=== PATIENT | female | born 2000 | race American Indian/Alaskan Native ===

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

== ENCOUNTER 2019-05-10 12:55 | Emergency (ER) | payer MEDICAID, OTHER | END 2019-05-10 13:54 | disposition left against medical advice (07) | LOC: DL.ED 12:55 | DX: Z53.21 Procedure and treatment not carried out due to patient leaving prior to being seen by health care provider (principal) | CPT/HCPCS: 99282 ==

== ENCOUNTER 2019-12-11 05:47 | Emergency (ER) | payer MEDICAID ==
[2019-12-11 06:04] VITALS: BP 128/61; PULSE 81
--- NOTE | 2019-12-11 06:17 | EDM.PDOC ---
<Ad Bass M - Last Filed: 12/11/19 06:45> ED HPI GENERAL MEDICAL PROBLEM - General Chief Complaint: LEAD DATA ARCHITECT Problem Stated Complaint: 20 WEEKS AND STOMACH PAIN Time Seen by Provider: 12/11/19 06:05 Source of Information: Reports: Patient History Limitations: Reports: No Limitations - History of Present Illness INITIAL COMMENTS - FREE TEXT/NARRATIVE: This 19 yo female patient reports to the ED with bilateral abdominal pain, nausea, vomiting (x1) and a sore throat that started this morning. The patient reports she is currently 20 weeks . The patient reports she has been having intermittent morning sickness, but has never felt this bad. The patient reports she had an ultrasound about 1 month ago and everything was fine. The patient reports she has had some nasal congestion over the past several days. The patient reports she was sent home from work this morning due to her current symptoms. The patient reports she has an appointment in the clinic tomorrow. The patient denies any fever at this time. The patient's partner has also had some head congestion, but no nausea or vomiting. Onset: Today Duration: Intermittent Location: Reports: Generalized Quality: Reports: Other Severity: Moderate Improves with: Reports: None Worsens with: Reports: None Context: Reports: Other Associated Symptoms: Reports: Cough, Nausea/Vomiting, Other (sore throat and head congestion) Abdomen Pain Score (Numeric/FACES): 7 - Related Data Allergies Allergy/AdvReac Type Severity Reaction Status Date / Time No Known Allergies Allergy Verified 12/11/19 06:04 Home Meds: Home Meds hydrOXYzine pamoate [Hydroxyzine Pamoate] 25 mg PO DAILY 01/27/17 [History] Past Medical History - Past Health History Medical/Surgical History: Denies Medical/Surgical History HEENT History: Reports: None Cardiovascular History: Reports: None Respiratory History: Reports: None Gastrointestinal History: Reports: Cholelithiasis Genitourinary History: Reports: None 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 Musculoskeletal History: Reports: None Neurological History: Reports: None Psychiatric History: Reports: Depression, Suicide Attempt, Suicidal Ideation, Other (See Below) Other Psychiatric History: pt trying to hit herself last night and started cutting Endocrine/Metabolic History: Reports: None Hematologic History: Reports: Anemia Immunologic History: Reports: None Oncologic (Cancer) History: Reports: None Dermatologic History: Reports: Other (See Below) Other Dermatologic History: left outer arm is a cut teena - Infectious Disease History Infectious Disease History: Reports: Chicken Pox - Past Surgical History Head Surgeries/Procedures: Reports: None GI Surgical History: Reports: Cholecystectomy Social & Family History - Family History Family Medical History: Noncontributory - Tobacco Use Smoking Status *Q: Never Smoker Second Hand Smoke Exposure: No - Caffeine Use Caffeine Use: Reports: Coffee, Soda - Recreational Drug Use Recreational Drug Use: No ED ROS GENERAL - Review of Systems Review Of Systems: Comprehensive ROS is negative, except as noted in HPI. ED EXAM, GI/ABD - Physical Exam Exam: See Below Exam Limited By: No Limitations General Appearance: Alert, WD/WN, Mild Distress Eyes: Bilateral: Normal Appearance, EOMI Ears: Normal External Exam, Normal Canal, Hearing Grossly Normal, Normal TMs Nose: Normal Inspection, Normal Mucosa, No Blood Throat/Mouth: Normal Inspection, Normal Lips, Normal Teeth, Normal Gums, Normal Oropharynx, Normal Voice, No Airway Compromise Head: Atraumatic, Normocephalic Neck: Normal Inspection, Supple, Non-Tender, Full Range of Motion Respiratory/Chest: No Respiratory Distress, Lungs Clear, Normal Breath Sounds, No Accessory Muscle Use, Chest Non-Tender Cardiovascular: Normal Peripheral Pulses, Regular Rate, Rhythm, No Edema, No Gallop, No JVD, No Murmur, No Rub GI/Abdominal Exam: Normal Bowel Sounds, Soft, No Organomegaly, No Distention, No Abnormal Bruit, No Mass, Pelvis Stable, Tender (bilateral abdominal wall tenderness) (Female) Exam: Deferred Rectal (Female) Exam: Deferred Back Exam: Normal Inspection, Full Range of Motion, NT Extremities: Normal Inspection, Normal Range of Motion, Non-Tender, Normal Capillary Refill, No Pedal Edema Neurological: Alert, Oriented, CN II-XII Intact, Normal Cognition, Normal Gait, Normal Reflexes, No Motor/Sensory Deficits Psychiatric: Normal Affect, Normal Mood Skin Exam: Warm, Dry, Intact, Normal Color, No Rash Lymphatic: No Adenopathy Course - Vital Signs Last Recorded V/S: Last Vital Signs Temp 97.7 F 12/11/19 05:57 Pulse 81 12/11/19 05:57 Resp 18 12/11/19 05:57 BP 128/61 12/11/19 05:57 Pulse Ox 100 12/11/19 05:57 - Orders/Labs/Meds Orders: Active Orders 24 hr Category Date Time Status CULTURE STREP A CONFIRMATION [] Stat Lab 12/11/19 06:14 Results CULTURE URINE [] Stat Lab 12/11/19 07:00 Received STREP SCRN A RAPID W CULT CONF [] Stat Lab 12/11/19 06:14 Results Isolation [COMM] Routine Oth 12/11/19 06:10 Active Labs: Laboratory Tests 12/11/19 12/11/19 12/11/19 Range/Units 06:16 06:16 07:00 WBC 9.5 (5.0-10.0) 10^3/uL RBC 4.16 L (4.2-5.4) 10^6/uL Hgb 10.2 L (12.0-16.0) g/dL Hct 31.6 L (37.0-47.0) % MCV 76.0 L D (80-100) fL MCH 24.5 L (27.0-34.0) pg MCHC 32.3 L (33.0-35.0) g/dL Plt Count 255 D (150-450) 10^3/uL Neut % (Auto) 72.2 (42.2-75.2) % Lymph % (Auto) 16.4 L (20.5-50.1) % Tate % (Auto) 10.5 H (2-8) % Eos % (Auto) 0.7 L (1.0-3.0) % Baso % (Auto) 0.2 (0.0-1.0) % Sodium 138 (136-145) mmol/L Potassium 3.3 L (3.5-5.1) mmol/L Chloride 104 (98-107) mmol/L Carbon Dioxide 26 (21-32) mmol/L Anion Gap 11.3 (7-13) mEq/L BUN 4 L (7-18) mg/dL Creatinine 0.47 L (0.55-1.02) mg/dL Est Cr Clr Drug Dosing 149.75 mL/min Estimated GFR (MDRD) > 60 BUN/Creatinine Ratio 8.5 (No establ ref range) Glucose 85 (74-99) mg/dL Calcium 8.1 L (8.5-10.1) mg/dL Total Bilirubin 0.3 (0.2-1.0) mg/dL AST 18 (15-37) U/L ALT 20 (14-59) U/L Alkaline Phosphatase 62 (46-116) U/L Total Protein 7.3 (6.4-8.2) g/dL Albumin 3.0 L (3.4-5.0) g/dL Globulin 4.3 Albumin/Globulin Ratio 0.70 Urine Color Yellow (YELLOW) Urine Appearance Slightly cloudy (CLEAR) Urine pH 7.0 (5.0-9.0) Ur Specific [place] 1.020 (1.005-1.030) Urine Protein Negative (NEGATIVE) Urine Glucose (UA) Negative (NEGATIVE) Urine Ketones 40 H (NEGATIVE) Urine Occult Blood Negative (NEGATIVE) Urine Nitrite Negative (NEGATIVE) Urine Bilirubin Negative (NEGATIVE) Urine Urobilinogen 0.2 (0.2-1.0) mg/dL Ur Leukocyte Esterase Trace H (NEGATIVE) Urine RBC Not seen /HPF Urine WBC 0-5 (0-5/HPF) /HPF Ur Epithelial Cells Few (NOT SEEN) /HPF Amorphous Sediment Few (NOT SEEN) /HPF Urine Bacteria Few (0-FEW/HPF) /HPF Urine Mucus Rare (NOT SEEN) /LPF Departure - Departure Disposition: Home, Self-Care 01 Clinical Impression: Second trimester Nausea & vomiting Qualifiers: Vomiting type: bilious vomiting Qualified Code(s): R11.14 - Bilious vomiting - Discharge Information Instructions: Nausea and Vomiting, Adult, [facility], Second Trimester of Forms: ED Department Discharge Additional Instructions: rest encourage fluids, small amounts more frequently advance diet as tolerated Follow up as needed Sepsis Event Note - Evaluation Sepsis Screening Result: No Definite Risk - Focused Exam Vital Signs: Vital Signs Temp Pulse Resp BP Pulse Ox 12/11/19 05:57 97.7 F 81 18 128/61 100 Date Exam was Performed: 12/11/19 Time Exam was Performed: 06:45 - My Orders Last 24 Hours: My Active Orders 12/11/19 07:00 CULTURE URINE [RM] Stat - Assessment/Plan Last 24 Hours: My Active Orders 12/11/19 07:00 CULTURE URINE [RM] Stat <Emily Cota - Last Filed: 12/11/19 07:34> Departure - Departure Time of Disposition: 07:29 Condition: Good - Discharge Information *PRESCRIPTION DRUG MONITORING PROGRAM REVIEWED*: No *COPY OF PRESCRIPTION DRUG MONITORING REPORT IN PATIENT TIGIST: No Sepsis Event Note - Focused Exam Date Exam was Performed: 12/11/19 Time Exam was Performed: 07:28
[2019-12-11 06:43] LABS: ANION GAP 11.3 mEq/L (7-13); CHLORIDE,CL 104 mmol/L (98-107); SODIUM,NA 138 mmol/L (136-145)
== END 2019-12-11 07:35 | disposition home or self-care (01) ==
LOC: DL.ED 05:47
DX: O21.9 Vomiting of pregnancy, unspecified (principal); Z90.49 Acquired absence of other specified parts of digestive tract; Z3A.20 20 weeks gestation of pregnancy
CPT/HCPCS: 36415; 80053; 81001; 85025; 87081; 87086; 87430; 87804; 99284

== ENCOUNTER 2020-03-15 13:12 | Observation (INO) | payer MEDICAID ==
[2020-03-15] MEDS ORDERED: Acetaminophen 325 MG Tab PO PRN (15:05)
[2020-03-15] MEDS ORDERED: Lactated Ringers 1,000 ML IV ONE (15:05)
[2020-03-15 15:47] LABS: ANION GAP 14.9 mEq/L (7-13); CHLORIDE,CL 106 mmol/L (98-107); SODIUM,NA 141 mmol/L (136-145)
--- NOTE | 2020-03-15 16:37 | US ---
EXAMINATION: BPP wo NST SEX: Female AGE: 19 years CLINICAL HISTORY: 25-year-old gravid female with gestational diabetes. Interpretation: Abnormal biophysical profile i.e. score 4 of 8 reflecting summation score 0 each for breathing movements and motion; score 2 each for tone and amniotic fluid volume. Clinical nonstress test results are not immediately available. Single live ( heart rate 144 bpm) intrauterine gestation, cephalic presentation. Note: Low volume (MAHIN 8 cm) amniotic fluid. Dilated proximal ureter right kidney (8 mm). CONCLUSION: Abnormal biophysical profile score 4 of a possible 8.
[2020-03-15] MEDS: Lactated Ringers 1,000 ML IV SCH ×2 (16:44→23:18)
[2020-03-15] MEDS: metFORMIN 500 MG Tab PO SCH (18:08)
--- NOTE | 2020-03-15 19:45 | HP ---
PATIENT IDENTIFICATION: Betzy Whitt is a 19-year-old G1, P0, intrauterine at 33-3/7 weeks by 7-week ultrasound, who presents with a biophysical profile score of 6/10 with an MAHIN borderline being 6.96 with gestational diabetes mellitus, questionable control. HISTORY OF PRESENT ILLNESS: The patient was seen last week. Started on medicines with metformin as her blood sugars were not under control, just minimally out of control postprandial with fasting ones being under control and concerns with possibility of having hypoglycemia. She was started on metformin. She was starting twice weekly testing this week and underwent a biophysical profile scoring 6/10 total with an MAHIN of 6.96. Because of the concerns with status with equivocal biophysical profile with MAHIN, especially with MAHIN being borderline, shared decision was made to proceed with an admission with IV fluid resuscitation, continuous monitoring, and following closely due to the increased risk of concerns with baby. I did discuss with the patient. She understands and agrees. With this in context, the patient has had gonorrhea and chlamydia early in the that were treated and tested negative thereafter, rubella nonimmune status, gestational diabetes mellitus, now on metformin. Blood sugar today approximately 2 hours after eating a cheeseburger was 144. Records called for, reviewed as below, and supplemented by patient history. [facility]: ABO blood type A positive. Negative antibody. Rubella nonimmune. Syphilis antibody is nonreactive. Negative hepatitis B surface antigen. Negative hep C, HIV, GC, and chlamydia recently with positive test earlier in the . Hemoglobin last one noted was 11.2 on 01/27/2020. One-hour GTT was 148 on 02/06/2020 and on 02/11/2020 had 1 hour and 2 hours post 3-hour GTT at 223 and 204 qualifying for gestational diabetes mellitus diagnosis. ALLERGIES: None. MEDICATIONS: Metformin 500 mg b.i.d., iron sulfate 325, and vitamins daily. PAST MEDICAL/PAST SURGICAL HISTORY: Remarkable for laparoscopic cholecystectomy in the past, anxiety and depression, as well as headaches in the past. SOCIAL HISTORY: Former smoker, quit on 12/13/2017. No alcohol or drug use currently. Lives in [place] with boyfriend, who is father of baby, Talib Stephens, and his brother. Cat in the household. Worked at [employer] in the past. FAMILY HISTORY: Heart disease in father. Negative family history of anesthesia, bleeding problems, or defects. REVIEW OF SYSTEMS: Otherwise reviewed fully and felt to be noncontributory. OBJECTIVE: Vital Signs: Blood pressure 119/66, heart rate 64, the patient feels afebrile. Appearance: Female appears stated age, acting appropriate, nontoxic appearance. Head: Atraumatic. EOMs intact. PERRLA. No scleral icterus. No obvious otorhinorrhea. Mucous membranes moist. Neck: No obvious tenderness. Lungs: Clear to auscultation bilaterally. No increased work of breathing. Heart: S1, S2. Regular rate and rhythm. Abdomen: Gravid. Aneudy's indeterminate. Nontender, nondistended. Bowel sounds positive. No organomegaly, pulsatile masses, or obvious hernias. No rebound, rigidity, or guarding. Some movement is documented and partially felt with exam today. Extremities: No peripheral edema. Deep tendon reflexes 2 to 3 out of 4 bilaterally and symmetric in lower extremities. Psychiatric: Mood and affect congruent. Judgment and insight intact. Skin: Without any cyanosis, clubbing, or jaundice. NST is found to be reactive and reassuring with heart tones in the 130s to 135 range baseline and tocometer revealed occasional contraction none felt by the patient. movement documented. Biophysical profile was done without the NST, scored a 4/8 with an MAHIN of 6.96 with points off for nonbreathing and no movement. ASSESSMENT: 1. Intrauterine at 33-3/7 weeks by 7-week ultrasound. 2. Nonreassuring status versus equivocal status with a 6/10 biophysical profile score noted. 3. Borderline oligohydramnios with MAHIN of 6.96. 4. Gestational diabetes mellitus, questionable controlled on metformin with 2- hour postprandial today being 144. 5. G1, P0. PLAN: Discussed with the patient. We will admit for observation, IV fluid resuscitation, continuous monitoring. Watch for any further contractions or her feeling them as well as evaluate blood sugars due to gestational diabetes mellitus and repeat a biophysical profile with MAHIN in the morning to further evaluate. The patient understands and agrees to above treatment. We will continue to follow clinically and closely. [facility] /[id number] [facility]PITALCharley
--- NOTE | 2020-03-15 20:45 | OBOUT ---
DATE: 03/15/2020 TIME: 1433 to 1453. REASON FOR NST: 1. Intrauterine at 33-3/7 weeks by 7-week ultrasound. 2. Nonreassuring status versus equivocal status with a biophysical profile 6/10 with an MAHIN of 6.96. 3. Borderline oligohydramnios with MAHIN as above. 4. Gestational diabetes mellitus, questionable controlled, currently on metformin. Two-hour postprandial today was 144. 5. G1, P0. NST INTERPRETATION: During this time period, heart tone baseline is approximately 135 to 140 and at least two 15 x 15 beats per minute accelerations, making this strip reactive and also reassuring. Tocometer reveals potential of 2 contractions during this time period, not felt by the patient. Blood pressure 119/66, heart rate 64, the patient feels afebrile. ASSESSMENT: 1. Nonstress test, reactive and reassuring. 2. Tocometer with 2 contractions, none felt by the patient. PLAN: Due to the biophysical profile scoring now a 6/10 with the NST as above and a borderline oligohydramnios with an MAHIN of 6.96, did discuss with the patient concerns with status and recommendation to proceed with hospitalization, continuous monitoring, IV fluid resuscitation, diabetic diet, following blood sugars closely, and repeating a BPP with MAHIN in the morning as well as a nonstress test. If these are improving, I suspect a transient nature, but will need to follow clinically and closely. This was discussed with the patient in detail. She understands and agrees with the above treatment and plan. [facility] /[id number]
[2020-03-16] MEDS: Lactated Ringers 1,000 ML IV SCH (06:12)
[2020-03-16] MEDS ORDERED: Folic Acid 1 MG Tab PO SCH (09:00)
[2020-03-16] MEDS: metFORMIN 500 MG Tab PO SCH (09:20)
[2020-03-16 10:20] VITALS: BP 119/55; PULSE 59
--- NOTE | 2020-03-16 13:55 | US ---
EXAMINATION: BPP wo NST SEX: Female AGE: 19 years CLINICAL HISTORY: 25-year-old high risk gravid female with gestational diabetes and BPP 03/03 (03/15/2020). Follow-up. INTERPRETATION: Single live ( heart rate 135 bpm) intrauterine gestation CEPHALIC presentation. Maximum biophysical profile score 8 OF 8 today reflecting summation score 2 each for the breathing movements, motion, tone and amniotic fluid volume. Clinical nonstress test not immediately available. MAHIN 14 cm.
--- NOTE | 2020-03-16 20:00 | OBOUT ---
DATE: 03/16/2020 REASON FOR NST: 1. Intrauterine at now 33-4/7 weeks by 7-week ultrasound. 2. Nonreassuring status versus equivocal, biophysical profile score to 6/10 yesterday. 3. Borderline oligohydramnios with amniotic fluid index less than 8, tech reported at 6.96 yesterday. 4. Gestational diabetes mellitus, questionable control. 5. G1, P0. 6. Anemia of earlier and resolved with iron sulfate. NST INTERPRETATION: During this time period, heart tone baseline is approximately 130 and least two 15 x 15 beats per minute accelerations, making this strip reactive and also noted to be reassuring. Tocometer reveals no evidence of contractions. ASSESSMENT: 1. Nonstress test, reactive and reassuring. 2. Tocometer without contractions. PLAN: Please see discharge summary for further details. As part of this workup, a repeat biophysical profile with MAHIN was done and tech report notes scores of 10/10 with the above as well as an MAHIN in the 13 range, and the patient was treated with IV fluids and monitoring and followed closely. Of note, her fasting blood sugar was in the 100 to 110 range this morning, which is out of control, but she has been taking her metformin, and we will continue to do so and watch serially her blood glucose over a period of time. Please see discharge paperwork for further details. [facility] /[id number]
--- NOTE | 2020-03-16 20:36 | DISCH ---
ADMIT DIAGNOSES: 1. Intrauterine at 33-3/7 weeks by 7-week ultrasound. 2. Nonreassuring status versus equivocal status with a biophysical profile of 6/10. 3. Borderline oligohydramnios with amniotic fluid index reported at 6.96 and less than or equal to 8 per final report. 4. Gestational diabetes mellitus, questionable control. Currently, on metformin. 5. G1, P0. 6. Anemia of earlier in the , resolved with iron supplementation. DISCHARGE DIAGNOSES: 1. Intrauterine at 33-4/7 weeks by 7-week ultrasound. 2. Nonreassuring status versus equivocal status, resolved with biophysical profile of 10/10 on date of discharge with an amniotic fluid index in the 13 range per tech report. 3. Borderline oligohydramnios with amniotic fluid index reported at 6.96 and less than or equal to 8 per final report. 4. Gestational diabetes mellitus, questionable control. Currently, on metformin. 5. G1, P0. 6. Anemia of earlier in the , resolved with iron supplementation. PROCEDURE PERFORMED: Nonstress test 03/15/2020 and 03/16/[address] Lai. HISTORY OF PRESENT ILLNESS: Please see H and P. SUMMARY OF HOSPITAL COURSE: The patient admitted on the above date with above diagnoses due to equivocal BPP with scoring 6/10 with borderline oligohydramnios. She was given IV fluid resuscitation. Followed sugars closely with a diabetic diet. INITIAL LABORATORY DATA: White cell count 10.1, hemoglobin 13.1, platelets 175. Sugar of 144. BMP remarkable for anion gap minimally elevated at 14.9 and a sugar of 106 on this. Her blood sugars were followed through her hospital stay. She had a 97 two-hour postprandial and then a fasting on morning of discharge being 105 after having a midnight snack with [employer]. Her urinalysis did reveal small leukocyte esterase, 5-10 white cells per high-power field as well. DISCHARGE EVALUATION: Vital Signs: Temperature 94, heart rate 66, blood pressure 119/68, respiratory rate 18. The patient denies feeling contractions. No increased work of breathing was noted. Strong peripheral pulses, symmetric and bilaterally in the upper extremities. Abdomen: Soft, nontender, nondistended. Bowel sounds positive. Gravid. Aneudy's indeterminate. Extremities: No peripheral edema. Deep tendon reflexes 2 to 3 out of 4 bilaterally and symmetric in all extremities. NST is found to be reactive and reassuring. heart tone baseline around the 130 to 135 range, and ultrasound revealed a biophysical profile scoring of 10/10 with an MAHIN in the 13 range per tech report. CONDITION ON DISCHARGE COMPARED TO CONDITION ON ADMISSION: Improved. DISCHARGE INSTRUCTIONS: Diet: Recommend continuing her diabetic diet. Activity is as tolerated. Follow up on 03/18/2020, and she has an appointment in the clinic followed by an NST that day. DISCHARGE MEDICATIONS: Continue iron sulfate, vitamins, and metformin 500 mg b.i.d. Did discuss with the patient and her male partner in the interim reasons to return or go to the emergency room and they understand and agree. [facility] /[id number]
== END 2020-03-16 09:30 | disposition home or self-care (01) ==
LOC: DL.US 13:12 → DL.MS 15:07
PROVIDERS: ADMIT Hospitalist; ATTEND Family Medicine
DX: O28.8 Other abnormal findings on antenatal screening of mother (principal); O24.419 Gestational diabetes mellitus in pregnancy, unspecified control; O99.013 Anemia complicating pregnancy, third trimester; D64.9 Anemia, unspecified; Z87.891 Personal history of nicotine dependence; Z3A.33 33 weeks gestation of pregnancy
CPT/HCPCS: 36415; 59025; 76819; 80048; 81001; 82962; 85025; 87086; 96360; 96361; A9270; G0378; J7120

== ENCOUNTER 2020-04-07 22:38 | Inpatient (IN) | payer MEDICAID ==
[2020-04-08] MEDS ORDERED: Lidocaine 1% 30 ML SDV INJECT PRN (00:22)
[2020-04-08] MEDS ORDERED: Tranexamic Acid 1,000 MG in Sodium Chloride 0.9% 100 ML IV PRN (00:22)
[2020-04-08] MEDS ORDERED: Lactated Ringers 1,000 ML IV ONE (00:22)
[2020-04-08] MEDS ORDERED: Sodium Chloride 0.9% 10 ML Syringe FLUSH PRN (00:22)
[2020-04-08] MEDS ORDERED: Methylergonovine 0.2 MG/1 ML Amp IM PRN (00:22)
[2020-04-08] MEDS ORDERED: Carboprost Tromethamine 250 MCG/1 ML Amp IM PRN (00:22)
[2020-04-08] MEDS ORDERED: Misoprostol 400 MCG (4 X 100 MCG TAB) RECTAL PRN (00:22)
[2020-04-08] MEDS ORDERED: Acetaminophen 325 MG Tab PO PRN (00:22)
[2020-04-08] MEDS ORDERED: Oxytocin/Normal Saline 30 UNIT/500 ML BAG IV SCH (00:30)
[2020-04-08] MEDS: Lactated Ringers 1,000 ML IV SCH ×6 (02:00→21:03)
[2020-04-08] MEDS: fentaNYL 100 MCG/2 ML SDV IVPUSH PRN ×5 (02:01→06:39)
[2020-04-08] MEDS: Ondansetron 4 MG/2 ML SDV IVPUSH PRN ×3 (02:02→12:44)
--- NOTE | 2020-04-08 02:02 | HP ---
PATIENT IDENTIFICATION: Anaid Whitt is a 19-year-old G1, P0, intrauterine at 36-5/7 weeks on date of admission, currently 36-6/7 weeks, confirmed with 7-week ultrasound, who presents with vaginal leaking and contraction. HISTORY OF PRESENT ILLNESS: The patient states at approximately 9:30 p.m. on date of admission, 04/07/2020, the patient was eating supper and noticed vaginal leaking that was clear in nature enough to run down her legs and soak through her clothing and continued and persisted, so being evaluated here at the hospital. Admitted. Associated with this have been contractions that are getting worse. Cyclone in the lower abdomen, coming every couple of minutes, and severe enough that she is breathing through them. To put this in context, she is GBS negative. Gestational diabetic, controlled on metformin 500 mg b.i.d. In last 24 to 48 hours, sugars have been within control and has rubella nonimmune status as well as history of gonorrhea and chlamydia in 08/2019 that was treated and negative with retesting in 09/2019 as well as a history of anemia of on iron with hemoglobin today 12.9. Records called for, reviewed as below, and supplemented by patient history. OBSTETRICAL HISTORY: Primid. ANTEPARTUM LABORATORIES: ABO blood type, is A positive, negative antibody. Rubella nonimmune. Syphilis antibody is nonreactive. Negative hepatitis B surface antigen. Hep C, HIV, with positive GC and chlamydia in 06/2019 and negative on 10/20/2019 after retesting after treatment with wet prep being negative with a 1-hour GTT at 1:48 and a 3-hour GTT positive for gestational diabetes mellitus. She is GBS negative. That was obtained on 04/05/2020. Also, she had COVID testing upon admission and that was negative as well. ALLERGIES: None. MEDICATIONS: 1. vitamins daily. 2. Iron sulfate 325 b.i.d. 3. Metformin 500 mg b.i.d. 4. Colace 100 mg p.r.n. PAST MEDICAL/PAST SURGICAL HISTORY: Remarkable for a laparoscopic cholecystectomy in the past, anxiety, depression, and headaches in the past. FAMILY HISTORY: Heart disease in father. Negative family history of anesthesia problems, bleeding problems, or defects. SOCIAL HISTORY: The patient lives in [place] with boyfriend, father of the baby, Talib Stephens, and his brother. There is a cat in the household. She had been working at [employer] in the past. She is a former smoker. No alcohol use. No drug use currently. REVIEW OF SYSTEMS: Otherwise, reviewed and felt to be noncontributory. OBJECTIVE: Vital Signs: Initial blood pressure 136/77, heart rate 71, temperature 98.6. Appearance: Female appears her stated age, acting appropriate for age. Nontoxic appearance. Breathing through contractions, but answering questions appropriately in between. HEENT: Head: Atraumatic. EOMs intact. PERRLA. No scleral icterus. No sore throat. Mucous membranes are moist. Neck: No obvious tenderness. Lungs: Clear to auscultation bilaterally. No increased work of breathing. Heart: S1, S2. Regular rate and rhythm. Abdomen: Gravid. Aneudy's indeterminate. Nontender, nondistended. Bowel sounds positive. No organomegaly, pulsatile masses, or hernias. No rebound, rigidity, or guarding. Monitors applied. : Normal external female genitalia. Normal position and presentation of urethra. Vaginal exam reveals her to be 5 to 6 cm, 80% to 90% effaced, 0 station, vertex suspected, and clear fluid emanating from the vaginal orifice. Extremities: No peripheral edema. Deep tendon reflexes 2 to 3 out of 4 bilaterally and symmetric in lower extremities. Psychiatric: Mood and affect congruent. Judgment and insight intact. Skin: No cyanosis, clubbing, or jaundice. NST is found to be reactive and reassuring. Tocometer reveals contractions every 2 to 3 minutes. White cell count 12.2, hemoglobin 12.9, platelets 184. Bwjba-ik-ljkw glucose was 103. AmniSure was positive and COVID-19 NAAT test was negative. ASSESSMENT: 1. Intrauterine at 36-5/7 weeks and now 36-6/7 weeks confirmed with 7-week ultrasound. 2. Spontaneous rupture of membranes at 2130 hours on date of admission, 04/07/2020. 3. Group B Streptococcus negative. 4. Gestational diabetes mellitus, controlled on metformin 500 mg b.i.d. 5. Rubella nonimmune. 6. Positive gonorrhea and chlamydia in 08/2019, treated and negative in 09/2019. 7. History of anemia of , resolved. 8. G1, P0. PLAN: Discussed with the patient with a rapid cervical dilation, we will be admitting her and follow clinically and closely. Of note, she was noted to be 2 to 3 cm upon initial evaluation, unchanged within hours to 5 to 6 cm. When she requests something for pain, fentanyl has been ordered. She is deferring intrathecal at this point in time and wishes to sit in the tub and nurse was getting her into the tub per current time of dictation. In terms of diabetes mellitus, blood sugars are under control. In terms of her being at 36-6/7 weeks, we will continue to follow clinically and closely at this point in time, and due to her rapid cervical dilation, not felt to be a transfer candidate as well. [facility] /[id number]
--- NOTE | 2020-04-08 02:35 | OBOUT ---
DATE: 04/07/2020 TIME: 2250 to 231. REASON FOR NST: 1. Intrauterine at 36-5/7 weeks confirmed with 7-week ultrasound. 2. Spontaneous rupture of membranes approximately at 2130, confirmed with AmniSure. 3. Group B Streptococcus negative. 4. Gestational diabetes mellitus, controlled on metformin 500 mg b.i.d. 5. Rubella nonimmune. 6. Positive gonorrhea and chlamydia in 08/2019, treated and negative thereafter in 2019. 7. Anemia of history with CBC pending currently. 8. G1, P0. NST INTERPRETATION: During this time period, heart tone baseline is approximately 140 and at least two 15 x 15 beats per minute accelerations making this strip reactive and reassuring. Tocometer reveals potential of 6 to 8 contractions during this time period, felt by patient. Blood pressure 136/77, heart rate 71, temperature 98.6. ASSESSMENT: 1. Nonstress test, reactive and reassuring. 2. Tocometer reveals contractions. PLAN: Evaluation shortly thereafter revealed a sugar of 103. AmniSure was done. Vaginal exam revealed around 2 cm soft and anterior. Please see admit history and physical for further details. [facility] /[id number]
[2020-04-08] MEDS ORDERED: hydrOXYzine HCl 25 MG Tab PO STA (05:06)
[2020-04-08] MEDS ORDERED: fentaNYL 100 MCG/2 ML SDV ONE (07:41)
[2020-04-08] MEDS ORDERED: EPINEPHrine 1 MG/1 ML Amp ONE ×2 (07:42→12:40)
--- NOTE | 2020-04-08 10:45 | PN ---
DATE: 04/08/2020 SUBJECTIVE: The patient is breathing through her contractions. Using Nitrox. She has now received 5 doses of fentanyl at this point in time, and using Nitrox. OBJECTIVE: heart tones with scalp electrode applied per nurse is reading baseline around the 120s to 130s range and it appears to be reactive, reassuring, with accelerations seen. Tocometer, contractions are difficult to read at times. Vaginal exam reveals her to be 7 to 8 cm, 90% effaced, 0 station, with caput noted. Last blood pressure 139/70. IUPC placed after discussion with the patient. ASSESSMENT: Intrauterine , now at 36-6/7 weeks, confirmed by 7-week ultrasound, with spontaneous rupture of membranes at 2130 hours, GBS negative, gestational diabetes mellitus, Rubella nonimmune patient who is a primip. PLAN: I did discuss with patient with her cervix being unchanged from nurse evaluation earlier, we will need to follow clinically and closely at this point in time. IUPC placed for further evaluation and management. Questions were answered. The patient does not want an intrathecal at this point in time and we will continue to follow closely at this time. [facility] /[id number]
--- NOTE | 2020-04-08 13:52 | PN ---
DATE: 04/08/2020 SUBJECTIVE: The patient is comfortable status post intrathecal. Started some Pitocin augmentation as [place] units were not adequate. OBJECTIVE: Vital Signs: Blood pressure 134/62, heart rate 70. Pitocin being at 6 mU/min. Tocometer reveals contractions every 2 to 3 minutes. Vaginal exam reveals her to be 8 cm with suspected swollen cervix as effacement has changed to be more thick. Some mild caput is noted. Zero station vertex suspected. heart tones with some mild interference with the scalp electrode does reveal tone baseline around the 140s and is felt to be reactive and reassuring. ASSESSMENT AND PLAN: Intrauterine at 36-6/7 weeks, confirmed with 7- week ultrasound. Spontaneous rupture of membranes last night at 2130 hours in a primid for gestational diabetes mellitus that was controlled with metformin and Rubella nonimmune status. As cervix has changed since last evaluation, we will continue to follow clinically and closely at this point in time. However, with effacement becoming thicker, did discuss with the patient following serially and continuing Pitocin augmentation while she is comfortable with her intrathecal and we will follow maternal status closely. [facility] /[id number]
[2020-04-08] MEDS ORDERED: ePHEDrine 50 MG/ML SDV IVPUSH PRN (15:59)
[2020-04-08] MEDS ORDERED: diphenhydrAMINE 50 MG/ML SDV IVPUSH PRN (15:59)
[2020-04-08] MEDS ORDERED: Ondansetron 4 MG/2 ML SDV IVPUSH PRN (15:59)
[2020-04-08] MEDS ORDERED: Naloxone 2 MG/2 ML Syringe IVPUSH PRN (15:59)
[2020-04-08] MEDS ORDERED: ceFAZolin 2 GM in Premix Bag 1 BAG IV ONE (16:00)
[2020-04-08] MEDS ORDERED: Citric Acid/Sodium Citrate Solution 30 ML Cup PO ONE (16:00)
[2020-04-08] MEDS ORDERED: Oxytocin/Normal Saline 60 UNIT/1,000 ML BAG ONE (16:03)
[2020-04-08] MEDS ORDERED: Methylergonovine 0.2 MG/1 ML Amp ONE (16:46)
[2020-04-08] MEDS ORDERED: Oxytocin/0.9 % Sodium Chloride 30 UNIT/500 ML BAG IV SCH (17:11)
[2020-04-08] MEDS ORDERED: Ketorolac 30 MG/ML SDV IVPUSH SCH (18:00)
[2020-04-08] MEDS ORDERED: Ketorolac 30 MG/ML SDV IVPUSH STA (18:14)
[2020-04-08] MEDS: Simethicone 80 MG Tab.Chew PO SCH (23:10)
[2020-04-08] MEDS: Ketorolac 30 MG/ML SDV IVPUSH SCH (23:18)
[2020-04-09] MEDS: Lactated Ringers 1,000 ML IV SCH (01:54)
--- NOTE | 2020-04-09 03:22 | PN ---
DATE: 04/09/2020 Postoperative day #1. SUBJECTIVE: The patient has tolerated some p.o. Has been vomiting. Decreased urine output was noted with darker color. 500 mL bolus was given and this has improved. She states her pain is under control. OBJECTIVE: Vital Signs: Heart rate 67, blood pressure 116/75, respiratory rate 16. Lungs: Clear to auscultation bilaterally. Heart: S1, S2. Regular rate and rhythm Genitourinary: Firm uterus -2 below umbilicus. Aquacel dressing appears dry and intact. Extremities: SAÚL hose and SCDs are on. LABORATORY DATA: Pending is a CBC later in the morning. ASSESSMENT: 1. Postoperative day #1, status post primary low-transverse with 2- layer uterine closure. 2. Uterine atony requiring Methergine IM x1 in the operating room with improvement thereafter. PLAN: CBC later in the morning. We will follow clinically and closely. Most likely, we will plan on discharge on Sunday with planned followup with mother and baby on Sunday in the clinic, and this was discussed with the patient today and Dr. Reyes and Dr. Christina will be covering in my absence over the weekend. [facility] /[id number]
[2020-04-09] MEDS: Ketorolac 30 MG/ML SDV IVPUSH SCH ×2 (07:06→12:02)
[2020-04-09] MEDS: Simethicone 80 MG Tab.Chew PO SCH ×4 (08:30→20:00)
[2020-04-09] MEDS: Prenatal Multivitamin with Calcium/Folic Acid/Iron Tab PO SCH (08:34)
[2020-04-09] MEDS: Docusate Sodium 100 MG Cap PO PRN ×2 (08:34→20:00)
--- NOTE | 2020-04-09 08:48 | PN ---
DATE: 04/09/2020 CBC returned as white cell count 15, hemoglobin 10.8 compared to predelivery hemoglobin 12.9, platelets are 129 compared to predelivery platelets of 184. OBJECTIVE: VITAL SIGNS: Morning temperature 98.4, heart rate 76, blood pressure 112/76, respiratory rate 18. ASSESSMENT: thrombocytopenia. We will recheck a CBC tomorrow. Follow clinically and closely. No evidence of hemolysis, elevated liver enzymes, low platelet count syndrome at this point in time with blood pressures within normal limits. In addition, had been following urine output closely, and from approximately 4 a.m. to 6 a.m., has had over 150 mL out. PLAN: Most likely, we will follow closely at this point in time. Repeat a CBC tomorrow and consider discharge on Sunday with followups on Sunday. [facility] /[id number]
--- NOTE | 2020-04-09 10:45 | PN ---
DATE: 04/08/2020 SUBJECTIVE: The patient has had some emesis, minor discomfort. OBJECTIVE: heart tones in the 120s, baseline range with some interference from the scalp electrode. Reactive and reassuring. Tocometer reveals contractions every 2 to 3 minutes. Pitocin has now been stopped. Vaginal exam per nurse has been unchanged since at least my last evaluation, and prior to that, very similar with no evidence of cervical change to be complete. ASSESSMENT AND PLAN: Intrauterine , 36-6/7 weeks, confirmed with 7- week ultrasound with now arrest of dilation, and this is despite having contractions, Pitocin augmentation, and intrauterine pressure catheter placement. Therefore, I did discuss with the patient and her male partner risks, benefits, alternatives, and complications of including, but not limited to, infection; bleeding; damage to organs such as bowel, bladder, tubes, uterus, ovaries, and sometimes fetus rarely needing a blood transfusion or rarer further surgery and even rarer maternal or . She understands, agrees, and wishes to proceed. Verbal and written consents were obtained, and questions were answered. We will proceed to the OR as soon as crew is ready and available. [facility] /[id number]
--- NOTE | 2020-04-09 11:07 | OBOUT ---
DATE: 04/08/2020 SUBJECTIVE: The patient starting to feel more discomfort after intrathecal as this seems to be wearing off. OBJECTIVE: Pitocin at 8 mU/min. Tocometer reveals contractions every 1-1/2 to 2 minutes. heart tones in the 130s to 140s range with interference from the scalp electrode. Vaginal exam reveals her to be 8 to 9 cm. Basically from 9 o'clock to 3 o'clock and anteriorly from there. Posteriorly, I can still feel minor amount of cervix. Caput is noted. ASSESSMENT AND PLAN: Intrauterine at 36-6/7 weeks, confirmed by 7- week ultrasound. Spontaneous rupture of membranes at 2130 hours with slow cervical dilation being protracted. At this point in time, we will continue with Pitocin augmentation, following [place] units, intrathecal if she wishes for another one unless there are concerns with heart tones or maternal status. Otherwise, we will continue to follow clinically and closely at this point in time. [facility] /[id number]
--- NOTE | 2020-04-09 11:16 | OR ---
DATE: 04/08/2020 PREOPERATIVE DIAGNOSES: 1. Intrauterine at 36-6/7 weeks, confirmed with 7-week ultrasound. 2. Arrest of dilation. 3. Spontaneous rupture of membranes at 2130 hours on date of admission, 04/07/2020. 4. Group B Streptococcus negative. 5. Gestational diabetes mellitus, controlled on metformin. 6. Rubella nonimmune. 7. Positive gonorrhea and chlamydia, 09/08/2019, treated and negative in 09/2019. 8. History anemia of , resolved with iron supplementation with hemoglobin 12.9 upon admission. 9. G1, P0. POSTOPERATIVE DIAGNOSES: 1. Intrauterine at 36-6/7 weeks, confirmed with 7-week ultrasound, delivered. 2. Arrest of dilation. 3. Spontaneous rupture of membranes at 2130 hours on date of admission, 04/07/2020. 4. Group B Streptococcus negative. 5. Gestational diabetes mellitus, controlled on metformin. 6. Rubella nonimmune. 7. Positive gonorrhea and chlamydia, 09/08/2019, treated and negative in 09/2019. 8. History anemia of , resolved with iron supplementation with hemoglobin 12.9 upon admission. 9. G1, P0. 10.Uterine atony requiring Methergine IM x1. PROCEDURES PERFORMED: On date of admission, 04/07/2020, had an NST. On 04/08/2020, had FSE placed per nurse, IUPC placed by Dr. Lai, and Pitocin augmentation followed by primary low-transverse with 2-layer uterine closure. FIRST ASSISTANTS: Mara Santana MD, and Gil Estes MS-III ANESTHESIA: Spinal. ESTIMATED BLOOD LOSS: 600 mL. INTRAVENOUS FLUIDS: 500 mL. URINE OUTPUT: 125 mL and josé miguel colored. START: 1639 UTERINE INCISION: 1643 DELIVERY: 1644 STOP: 1703 FINDINGS: Male. score of 8 and 9, weighing 7 pounds 15 ounces. DESCRIPTION OF PROCEDURE: After proper consent was obtained, the patient was brought to the operating room where spinal anesthetic was administered. A Marshall was placed in preop under sterile conditions. Abdomen was prepped and draped in normal sterile fashion with the patient placed in the supine position with left lateral tilt. Skin incision was then made over lower abdomen in transverse Pfannenstiel-type fashion. This was carried down the fascia and scored in the midline. Subcutaneous tissue was raked laterally with Bell retractor, and fascial incision was then extended in transverse fashion using curved Steele. Johnnie clamps x2 were used to grasp the superior aspect of the fascia, and rectus muscles were dissected from the fascia using sharp and blunt technique. In a similar fashion, Johnnie clamps x2 were used to grasp the inferior portion of the incision, and rectus and pyramidalis muscles were dissected from the fascia using sharp and blunt technique. Rectus muscles were then in the midline with blunt technique. Abdominal cavity was then entered in a blunt technique. Incision was extended superiorly and inferiorly in a blunt technique. Beto O large retractor was then introduced and used. Vesicouterine peritoneum was then identified, incised in transverse fashion with Metzenbaum scissors and bladder flap was made digitally. A curvilinear incision was made on the lower uterine segment at 1643 hours. Uterus was entered sharply. Clear fluid returned. Uterine incision was then extended in transverse fashion using blunt technique. vertex was then delivered up from the pelvis and through the incision followed by rest of the infant without difficulty. Mouth and nares were suctioned. Cord was doubly clamped and cut, and infant was brought to team. Then, approximately 10 mL of cord blood was obtained for labs. Placenta then delivered with gentle cord traction and fundal massage. Uterine cavity was then cleared of all blood clots and debris with lap sponge. Silva clamps were used to grasp the uterine incision. This was closed in a running locked fashion and tied at lateral margins with 1-0 Vicryl. The uterine atony was noted, and Methergine was called for and given with atony resolving over serial exams thereafter. A second imbricating layer was then applied and tied at lateral margin with 1-0 Vicryl. Right of midline, there was minimal bleeding. A abrdro-[id number] stitch was applied over this area, and hemostasis was reassured. First inspection of the uterine incision revealed hemostasis. Beto O retractor was then removed and paracolic gutters were then cleared of all blood clots and debris. Anterior cul-de-sac was irrigated copiously and blood clots removed. Second and final inspection of uterine incision and anterior cul-de-sac revealed hemostasis. Rectus muscles were then reapproximated in midline with [id number] stitch using 1-0 Vicryl. Subfascial tissues were found to be hemostatic. Fascia closed in a running fashion and tied at lateral margins with 0 looped PDS. Subcutaneous tissue was irrigated copiously. Hemostasis was reassured. Skin was reapproximated with medium boris. Sterile Aquacel dressing was applied. Uterine fundus was firm and massaged at the conclusion of the case, -2 below umbilicus. No immediate complications were noted. Sponge, lap, and needle counts were correct. The patient received 2 g of Ancef preoperatively, Pitocin per protocol, and will receive Toradol at the conclusion of case for pain control. Mother and are currently stable at the time of dictation. [facility] /[id number]
[2020-04-09] MEDS: Acetaminophen/oxyCODONE 325-5 MG Tab PO PRN ×3 (12:03→21:05)
[2020-04-09] MEDS ORDERED: Oxytocin/Normal Saline 30 UNIT/500 ML BAG IV ONE (15:46)
[2020-04-09] MEDS ORDERED: EPINEPHrine 1 MG/ML SDV IV ONE (15:49)
[2020-04-09] MEDS ORDERED: fentaNYL 100 MCG/2 ML SDV ITHECAL ONE ×2 (15:49→16:13)
[2020-04-09] MEDS ORDERED: EPINEPHrine 1 MG/1 ML Amp ONE (16:13)
[2020-04-09] MEDS: Ibuprofen 800 MG Tab PO PRN (20:00)
[2020-04-10] MEDS: Acetaminophen/oxyCODONE 325-5 MG Tab PO PRN ×5 (01:07→20:40)
[2020-04-10] MEDS: Ibuprofen 800 MG Tab PO PRN ×2 (05:46→16:22)
[2020-04-10] MEDS ORDERED: Measles, Mumps & Rubella Vaccine 0.5 ML SDV SUBCUT ONE (09:00)
[2020-04-10] MEDS: Simethicone 80 MG Tab.Chew PO SCH ×4 (09:08→20:35)
[2020-04-10] MEDS: Docusate Sodium 100 MG Cap PO PRN ×2 (09:08→20:35)
[2020-04-10] MEDS: Prenatal Multivitamin with Calcium/Folic Acid/Iron Tab PO SCH (09:08)
--- NOTE | 2020-04-10 11:54 | PN ---
DATE: 04/10/2020 SUBJECTIVE: Patient was seen on 04/10/2020, at [facility]. Patient is postoperative day #2 from a primary low-transverse at 37 weeks' gestational age due to failure to progress and complicated by gestational diabetes, on metformin. This morning, mom and baby are both doing well. The patient is ambulating, voiding, tolerating p.o. Vaginal bleeding is minimal. OBJECTIVE: VITAL SIGNS: Patient is afebrile. Heart rate 70 to 77, blood pressure 97 to 138 systolic over 72 to 97 diastolic, respiratory rate 16 to 18, O2 saturations 94% to 100% on room air. ABDOMEN: Benign. The Aquacel dressing intact. Patient's hemoglobin pre-delivery was 10.8, and this morning, hemoglobin is 11.1. She does have some mild gestational thrombocytopenia with platelets of 146, and her metformin has been stopped. ASSESSMENT AND PLAN: Postoperative day #1 status post primary . Mom and baby are both doing well. We will continue postoperative care and likely discharge tomorrow. [facility] /[id number] MTDD
[2020-04-11] MEDS: Ibuprofen 800 MG Tab PO PRN ×2 (00:08→09:17)
[2020-04-11] MEDS: Acetaminophen/oxyCODONE 325-5 MG Tab PO PRN ×3 (00:36→09:16)
[2020-04-11 08:47] VITALS: BP 122/56; PULSE 75
[2020-04-11] MEDS: Simethicone 80 MG Tab.Chew PO SCH (09:15)
[2020-04-11] MEDS: Docusate Sodium 100 MG Cap PO PRN (09:15)
[2020-04-11] MEDS: Prenatal Multivitamin with Calcium/Folic Acid/Iron Tab PO SCH (09:15)
[2020-04-11] MEDS ORDERED: Lactated Ringers 1,000 ML IV ONE (11:19)
[2020-04-11] MEDS ORDERED: Methylergonovine 0.2 MG/1 ML Amp IM ONE (11:19)
[2020-04-11] MEDS ORDERED: Ondansetron 4 MG/2 ML SDV IV ONE (11:19)
[2020-04-11] MEDS ORDERED: fentaNYL 100 MCG/2 ML SDV ONE (11:19)
[2020-04-11] MEDS ORDERED: Morphine PF 1 MG/ML Amp ONE (11:19)
--- NOTE | 2020-04-11 12:34 | PN ---
DATE: 04/11/2020 SUBJECTIVE: The patient is postoperative day 3 status post primary due to failure to progress. She did have gestational diabetes and was on metformin but is currently off that medication. Mom and baby are both doing well. She is . She is ambulating, tolerating p.o., voiding, and good pain control. PHYSICAL EXAMINATION: Vital Signs: Patient is afebrile. Heart rate 68 to 88, blood pressure 112 to 130 systolic over 56 to 78 diastolic, respiratory rate 16 to 18, and O2 saturation 96% to 99%. Abdomen: Benign. Fundus is firm below the umbilicus. The Aquacel dressing is still intact. LABORATORY DATA: The patient's pre-delivery hemoglobin was 10.8, post-delivery was 11.1. She did have some mild gestational thrombocytopenia with platelets of 146. She is COVID negative. Blood type is A positive. She is rubella nonimmune. ASSESSMENT AND PLAN: Postoperative day 3 status post primary section. Mom and baby are both doing well. We will discharge her to home with 20 oxycodone. She does have a followup with primary on Sunday to have the Aquacel dressing removed, and then I did recommend type 2 diabetes screening in the period. She will continue pelvic and abdominal rest. [facility] /[id number] MTDD
== END 2020-04-11 11:20 | disposition home or self-care (01) | DRG 788 ==
LOC: DL.OBCHECK 22:38 → DL.OB 04-08 00:05 → OBSVTOIN 04-08 16:44
PROVIDERS: ADMIT Family Medicine; ATTEND Family Medicine
PROC: 10D00Z1 Extraction of Products of Conception, Low, Open Approach (ICD-10-PCS; principal; 2020-04-08)
PROC: 4A1HXCZ Monitoring of Products of Conception, Cardiac Rate, External Approach (ICD-10-PCS; 2020-04-08)
PROC: 10H07YZ Insertion of Other Device into Products of Conception, Via Natural or Artificial Opening (ICD-10-PCS; 2020-04-08)
DX: O24.425 Gestational diabetes mellitus in childbirth, controlled by oral hypoglycemic drugs (principal); O62.2 Other uterine inertia; P12.81 Caput succedaneum; D69.6 Thrombocytopenia, unspecified; Z3A.36 36 weeks gestation of pregnancy; Z37.0 Single live birth; Z11.59 Encounter for screening for other viral diseases; O72.3 Postpartum coagulation defects; O75.89 Other specified complications of labor and delivery
CPT/HCPCS: 36415; 51701; 51702; 82962; 84112; 85027; 86850; 86900; 86901; 90471; 90707; A9270-GY; J0171; J0690; J1885; J2405; J2590; J3010; J7120; U0002